=== PATIENT | female | born 1970 | race African-American/Black ===

== ENCOUNTER 2019-07-02 11:31 | Emergency (ER) | payer SELFPAY ==
[2019-07-02] MEDS ORDERED: ASPIRIN 81 MG TABLET, CHEWABLE PO ONE (11:47)
--- NOTE | 2019-07-02 11:48 | ER Document Report ---
ED Medical Screen (RME) - General Chief Complaint: Chest Pain Stated Complaint: CHEST PAIN Time Seen by Provider: 07/02/19 11:43 Notes: HPI: 49-year-old female who is otherwise healthy presenting to the emergency department complaining of 1 month of shortness of breath, has had intermittent sharp anterior chest pain throughout the month states it was worse today when she was at work so she decided to come in for evaluation. Patient states the discomfort in the anterior chest does not radiate into the neck or back but she has some numbness and tingling in both arms. States that she has been having sinus issues for 4 months and has been on steroids and 3 rounds of antibiotics for her sinuses by her PCP in the last several months. Has not had a fever I have greeted and performed a rapid initial assessment of this patient. A comprehensive ED assessment and evaluation of the patient, analysis of test results and completion of the medical decision making process will be conducted by additional ED providers PHYSICAL EXAMINATION: Lung sounds are clear to auscultation, regular rate and rhythm, EKG normal sinus rhythm without ectopy. No abdominal pain on palpation. No reproducible pain on palpation of the anterior chest I have greeted and performed a rapid initial assessment of this patient. A comprehensive ED assessment and evaluation of the patient, analysis of test results and completion of medical decision making process will be conducted by an additional ED providers. - Related Data Allergies/Adverse Reactions: No Known Allergies Allergy (Verified 07/02/19 11:42) Physical Exam - Vital signs Vitals: Temp Pulse Resp BP Pulse Ox 98.7 F 88 18 102/69 99 07/02/19 11:41 07/02/19 11:41 07/02/19 11:41 07/02/19 11:41 07/02/19 11:41 Course - Vital Signs Vital signs: Temp Pulse Resp BP Pulse Ox 98.7 F 88 18 102/69 99 07/02/19 11:41 07/02/19 11:41 07/02/19 11:41 07/02/19 11:41 07/02/19 11:41
[2019-07-02 12:06] LABS: ABSOLUTE LYMPHOCYTES (AUTO) 1.2 10^3/uL (0.5-4.7); ABSOLUTE MONOCYTES (AUTO) 0.3 10^3/uL (0.1-1.4); ABSOLUTE NEUT (AUTO) 2.2 10^3/uL (1.7-8.2); BASOPHILS % (AUTO) 1.1 % (0-2); EOSINOPHILS % (AUTO) 0.9 % (0-6); HEMATOCRIT 43.6 % (36.0-47.0); HEMOGLOBIN 14.9 g/dL (12.0-15.5); LYMPHOCYTES % (AUTO) 32.1 % (13-45); MEAN CORPUSCULAR HEMOGLOBIN 28.7 pg (27.0-33.4); MEAN CORPUSCULAR HGB CONC 34.3 g/dL (32.0-36.0); MEAN CORPUSCULAR VOLUME 84 fl (80-97); MONOCYTES % (AUTO) 8.5 % (3-13); PLATELET COUNT 315 10^3/uL (150-450); RED CELL DISTRIBUTION WIDTH 16.5 % (11.5-14.0); SEGMENTED NEUTROPHILS % (AUTO) 57.4 % (42-78); TOTAL CELLS COUNTED % (AUTO) 100 %; WHITE BLOOD COUNT 3.8 10^3/uL (4.0-10.5)
--- NOTE | 2019-07-02 12:20 | ER Document Report ---
ED General - General Chief Complaint: Chest Pain Stated Complaint: CHEST PAIN Time Seen by Provider: 07/02/19 11:43 Notes: Patient is a 49-year-old -[place] female with no reported past medical history who presents to the emergency department today with a chief complaint of chest pain and shortness of breath. Patient reports over the past several months she has been dealing with "sinus issues". She states she is been on 3 rounds of antibiotics and some oral steroids for sinus congestion without any improvement. She states they placed her on steroids because she could not perform a Rivka pot in the office. She reports she just recently went through a divorce. She reports because of that she did not have good follow-up and care because she lost her insurance and the divorce. She reports that over the past month she has felt intermittently short of breath. She states on Monday she sneezed and it was such a hard sneeze that is sharp pain from her neck and upper back and her arms. She states over this. She has had intermittent sharp shooting chest pains in the center of the chest. She states those pains occasio yang radiate to the arms as well. She denies any shortness of breath the day. But is been having intermittent episodes of sharp chest pain today. She denies any recent travel or known sick contacts. Denies any fevers throughout this course. She adds that she was tested for coronavirus and was told she was negative recently. She denies any cardiorespiratory history. Denies any lower extremity pain or swelling, hemoptysis, history of DVT or PE, recent surgery, recent immobilization, smoking or hormone replacement therapy. - Related Data Allergies/Adverse Reactions: No Known Allergies Allergy (Verified 07/02/19 11:42) Past Medical History - Social History Smoking Status: Never Smoker Chew tobacco use (# tins/day): No Frequency of alcohol use: None Drug Abuse: None Family History: Reviewed & Not Pertinent Patient has suicidal ideation: No Patient has homicidal ideation: No Review of Systems - Review of Systems EENT: Nose congestion, Sinus pressure, Sinus discharge Cardiovascular: Chest pain Respiratory: Short of breath -: Yes All other systems reviewed and negative Physical Exam - Vital signs Vitals: Temp Pulse Resp BP Pulse Ox 98.7 F 88 18 102/69 99 07/02/19 11:41 07/02/19 11:41 07/02/19 11:41 07/02/19 11:41 07/02/19 11:41 - General General appearance: Appears well, Alert In distress: None - HEENT Head: Normocephalic, Atraumatic Eyes: Normal Conjunctiva: Normal Pupils: PERRL Ears: Normal Mouth/Lips: Normal Mucous membranes: Moist Neck: Supple - Respiratory Respiratory status: No respiratory distress Chest status: Nontender Breath sounds: Normal Chest palpation: Normal - Cardiovascular Rhythm: Regular Heart sounds: Normal auscultation - Extremities General upper extremity: Normal inspection, Nontender, Normal color, Normal ROM, Normal temperature General lower extremity: Normal inspection, Nontender, Normal color, Normal ROM, Normal temperature, Normal weight bearing. No: Karine's sign - Neurological Neuro grossly intact: Yes Cognition: Normal Orientation: AAOx4 Willy Coma Scale Eye Opening: Spontaneous Willy Coma Scale Verbal: Oriented [place] Coma Scale Motor: Obeys Commands Willy Coma Scale Total: 15 Speech: Normal Motor strength normal: LUE, RUE, LLE, RLE Sensory: Normal - Psychological Associated symptoms: Other - Flat affect - Skin Skin Temperature: Warm Skin Moisture: Dry Skin Color: Normal Course - Re-evaluation Re-evalutation: 07/02/19 16:40 Patient's work-up negative. 2 troponins, 2 EKGs unchanged. Atypical presentation of chest pain. Heart score of 1-2, low risk. She is currently trialing Flonase and Sudafed. She will either add Claritin, Zyrtec or Kecia. She reports the pharmacist told her about Afrin which she purchased and has not used yet I cautioned her tremendously regarding rebound congestion in the dependent nature. If she uses she will use with caution and sparingly. Counseled her regarding rest, hydration and the importance of outpatient follow- up. Advised that she return here or any ER immediately with any new, persistent or worsening symptoms. She verbalized understood and agreed. - Vital Signs Vital signs: Temp Pulse Resp BP Pulse Ox 98.7 F 88 18 106/82 100 07/02/19 11:41 07/02/19 11:41 07/02/19 16:01 07/02/19 16:00 07/02/19 16:01 - Laboratory Result Diagrams: 07/02/19 11:52 07/02/19 11:52 Laboratory results interpreted by me: 07/02/19 07/02/19 11:52 11:52 WBC 3.8 L RDW 16.5 H Carbon Dioxide 31 H Est GFR (MDRD) Non-Af 51 L Discharge - Discharge Clinical Impression: Sinusitis Qualifiers: Sinusitis location: unspecified location Chronicity: unspecified Qualified Code(s): J32.9 - Chronic sinusitis, unspecified Chest pain Qualifiers: Chest pain type: unspecified Qualified Code(s): R07.9 - Chest pain, unspecified Condition: Stable Disposition: HOME, SELF-CARE Instructions: Chest Pain of Unclear Cause ([facility]) Additional Instructions: Follow-up with your regular doctor in 2 to 3 days for reevaluation. Return here or any ER immediately with any new, persistent or worsening symptoms.
[2019-07-02 12:22] LABS: ALBUMIN 4.8 g/dL (3.5-5.0); ALKALINE PHOSPHATASE 61 U/L (38-126); ANION GAP 7 (5-19); ASPARTATE AMINO TRANSFERASE 24 U/L (14-36); BILIRUBIN,DIRECT 0.1 mg/dL (0.0-0.4); BILIRUBIN,TOTAL 0.7 mg/dL (0.2-1.3); BLOOD UREA NITROGEN 17 mg/dL (7-20); CALCIUM 10.1 mg/dL (8.4-10.2); CARBON DIOXIDE 31 mmol/L (22-30); CHLORIDE 100 mmol/L (98-107); GLUCOSE 92 mg/dL (75-110); POTASSIUM 4.7 mmol/L (3.6-5.0); TOTAL PROTEIN 7.7 g/dL (6.3-8.2)
[2019-07-02 12:23] LABS: INTERNATIONAL RATION (INR) 0.97; PROTHROMBIN TIME 12.9 SEC (11.4-15.4)
[2019-07-02 12:43] LABS: D-DIMER < 0.27 ug/mL (0.00-0.50)
--- NOTE | 2019-07-02 12:49 | RADIOLOGY REPORT (SQ) ---
EXAM DESCRIPTION: CHEST 2 VIEWS IMAGES COMPLETED DATE/TIME: 07/02/2019 12:40 pm REASON FOR STUDY: sob/cp COMPARISON: None. EXAM PARAMETERS: NUMBER OF VIEWS: two views TECHNIQUE: Digital Frontal and Lateral radiographic views of the chest acquired. RADIATION DOSE: NA LIMITATIONS: There is are not fracture from overlying leads. FINDINGS: LUNGS AND PLEURA: No opacities, masses or pneumothorax. No pleural effusion. MEDIASTINUM AND HILAR STRUCTURES: No masses or contour abnormalities. HEART AND VASCULAR STRUCTURES: Heart normal size. No evidence for failure. BONES: No acute findings. HARDWARE: None in the chest. OTHER: No other significant finding. IMPRESSION: NO ACUTE RADIOGRAPHIC FINDING IN THE CHEST. TECHNICAL DOCUMENTATION: JOB ID: [id number] 2010 [employer]- All Rights Reserved Reading location - IP/workstation name: [email or web address]
[2019-07-02 17:04] VITALS: BP 104/62
--- NOTE | 2019-07-02 21:59 | EKG REPORT ---
SEVERITY:- OTHERWISE NORMAL ECG - SINUS RHYTHM BORDERLINE LEFT AXIS DEVIATION : Confirmed by: Sully Davison MD 02-Jul-2019 21:58:05
--- NOTE | 2019-07-02 21:59 | EKG REPORT ---
SEVERITY:- OTHERWISE NORMAL ECG - SINUS RHYTHM BORDERLINE LEFT AXIS DEVIATION : Confirmed by: Sully Davison MD 02-Jul-2019 21:58:11
== END 2019-07-02 17:01 | disposition home or self-care (01) ==
LOC: ER 11:31
DX: R07.9 Chest pain, unspecified (principal); J32.9 Chronic sinusitis, unspecified; R06.02 Shortness of breath; R09.81 Nasal congestion
CPT/HCPCS: 36415; 71046; 80053; 83880; 84484; 85025; 85379; 85610; 85730; 93005; 93010; 99285

== ENCOUNTER → 2019-08-09 | Outpatient (CLI) | payer SELFPAY | LOC: OD 11:50 | PROVIDERS: ATTEND Otolaryngology | DX: J32.9 Chronic sinusitis, unspecified (principal) | CPT/HCPCS: 36415; 82785; 86003 ==